=== PATIENT | female | born 1930 | race American Indian/Alaskan Native ===

== ENCOUNTER 2017-03-02 15:03 | Emergency (ER) | payer OTHER ==
[2017-03-02 15:13] VITALS: PULSE 73; RESP 18; TEMP 98.1; O2SAT 96
[2017-03-02 15:30] VITALS: BMI 31.2
[2017-03-02] MEDS ORDERED: Bacitracin 500 Units/gm Oint Foilpak UD TOP ONE (15:31)
--- NOTE | 2017-03-02 15:54 | C.PDOC ---
History Of Present Illness 86 year old female brought in by EMS with complaints of right side pain after fall when stepping off the bus. She complains of pain tor right shoulder and bilateral knee abrasions. She denies head injury, LOC, back pain, incontinence. - HPI Time Seen by Provider: 03/02/17 15:31 Chief Complaint (Nursing): Lower Extremity Problem/Injury History Per: Patient History/Exam Limitations: no limitations Onset/Duration Of Symptoms: Sudden Onset (APPLIANCE REPAIRER) Injury Occurred (Timing): Hours Ago: Past Medical History Reviewed: Historical Data, Nursing Documentation, Vital Signs Vital Signs: Last Vital Signs Temp 98.1 F 03/02/17 15:13 Pulse 73 03/02/17 15:13 Resp 18 03/02/17 15:13 BP 171/76 H 03/02/17 16:50 Pulse Ox 96 03/02/17 17:27 - Medical History PMH: HTN - [facility] Procedures BUNIONECTOMY NEC (06/30/97) REPAIR OF HAMMER TOE (06/30/97) Family History: States: No Known Family Hx - Social History Hx Tobacco Use: No Hx Alcohol Use: No Hx Substance Use: No - Immunization History Hx Tetanus Toxoid Vaccination: No Hx Influenza Vaccination: No Hx Pneumococcal Vaccination: No Review Of Systems Except As Marked, All Systems Reviewed And Found Negative. Musculoskeletal: Positive for: Shoulder Pain (Right shoulder) Skin: Positive for: Other ( Bilateral knee abrasions.) Neurological: Negative for: Weakness, Numbness Physical Exam - Physical Exam Appears: Non-toxic, No Acute Distress, Other (Elderly. Appears stated age.) Skin: Warm, Dry, No Rash, Other (Superficial round abrasions to bilateral knees. No bleeding.) Head: Atraumatic, Normacephalic Eye(s): bilateral: Normal Inspection, PERRL, EOMI Oral Mucosa: Moist Neck: Normal, Normal ROM, Supple Chest: Symmetrical, No Tenderness Cardiovascular: Rhythm Regular, No Murmur Respiratory: Normal Breath Sounds, No Rales, No Rhonchi, No Stridor, No Wheezing Back: No CVA Tenderness, No Vertebral Tenderness, No Paraspinal Tenderness Extremity: Capillary Refill (<2 sec), No Deformity, No Swelling, Other (Right Shoulder: Mild pain with abduction and mild tenderness to the anterior aspect) Pulses: Left Radial: Normal, Right Radial: Normal Neurological/Psych: Oriented x3, Normal Speech, Normal Sensation Gait: Steady ED Course And Treatment O2 Sat by Pulse Oximetry: 96 (RA) Pulse Ox Interpretation: Normal - Other Rad X-Ray - Right Shoulder X-Ray: Viewed By Me, Read By Radiologist Interpretation: PROCEDURE: Radiographs of the Right Shoulder. HISTORY: pain s.p fall. COMPARISON: No prior. FINDINGS: BONES: Normal. No fracture. JOINTS: Preserved glenohumeral relationship, acromioclavicular degenerative change: Mild. SOFT TISSUES: Normal. OTHER FINDINGS: None. IMPRESSION: No acute findings related to/accounting for the clinical presentation. X-Ray - Right Knee X-Ray: Viewed By Me, Read By Radiologist Interpretation: PROCEDURE: Right Knee Radiographs. HISTORY: pain s.p fall. COMPARISON: None. FINDINGS: BONES: No acute fracture. Proliferative hypertrophic changes emanating from the femoral condyle and tibial plateau. JOINTS: Medial compartment degenerative changes and to lesser extent lateral compartment with sparing of the patellofemoral joint. JOINT EFFUSION: None. OTHER FINDINGS: None. 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 No acute findings related to/ accounting for the clinical presentation. Medical Decision Making Medical Decision Making: Impression: right shoulder and knee pain s.p fall. patient found to be hypertensive and admits she has not yet taken her HTN medications today Plan: * Xray right shoulder and knee * Bacitracin and wound care to knee abrasions Progress: Xrays viewed by me showing no acute fracture, dislocation or other abnormality to shoulder and knee Patient was given Norvasc for her HTN. She declined any pain medicine. Patient remained alert and oriented in no acute distress. She is ambulatory without discomfort. Disposition Counseled Patient/Family Regarding: Studies Performed, Diagnosis, Need For Followup - Disposition Referrals: Clinic,Med Surg [Primary Care Provider] - Disposition: HOME/ ROUTINE Disposition Time: 16:33 Condition: STABLE Additional Instructions: Your xray was normal, no fracture. Please apply ice to area 15 minutes three times a day. Take pain medicine as needed for pain every 6 hours, with food to not upset stomach. Follow up with orthopedic if pain persists over one week. 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 - Scribe Statement The provider has reviewed the documentation as recorded by the Scribe Heavenly Martin All medical record entries made by the Joseibwillie were at my direction and personally dictated by me. I have reviewed the chart and agree that the record accurately reflects my personal performance of the history, physical exam, medical decision making, and the department course for this patient. I have also personally directed, reviewed, and agree with the discharge instructions and disposition.
[2017-03-02 16:53] VITALS: BP 171/76
--- NOTE | 2017-03-02 16:56 | RAD ---
PROCEDURE: Right Knee Radiographs. HISTORY: pain s.p fall COMPARISON: None. FINDINGS: BONES: No acute fracture. Proliferative hypertrophic changes emanating from the femoral condyle and tibial plateau JOINTS: Medial compartment degenerative changes and to lesser extent lateral compartment with sparing of the patellofemoral joint. JOINT EFFUSION: None. OTHER FINDINGS: None. 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 No acute findings related to/accounting for the clinical presentation.
--- NOTE | 2017-03-02 16:57 | RAD ---
PROCEDURE: Radiographs of the Right Shoulder HISTORY: pain s.p fall COMPARISON: No prior. FINDINGS: BONES: Normal. No fracture. JOINTS: Preserved glenohumeral relationship, acromioclavicular degenerative change: Mild. SOFT TISSUES: Normal. OTHER FINDINGS: None. IMPRESSION: No acute findings related to/accounting for the clinical presentation.
== END 2017-03-02 17:30 | disposition home or self-care (01) ==
LOC: C.ER 15:03 → SUPCPDRO 15:03 → C.ER 17:30
DX: S40.011A Contusion of right shoulder, initial encounter (principal); S80.211A Abrasion, right knee, initial encounter; S80.212A Abrasion, left knee, initial encounter; W17.89XA Other fall from one level to another, initial encounter; I10 Essential (primary) hypertension

== ENCOUNTER 2018-10-12 12:15 | Emergency (ER) | payer OTHER ==
[2018-10-12 12:22] VITALS: BMI 34.2
[2018-10-12] MEDS ORDERED: Fluorescein 1 mg Ophthalmic Strip OU ONE (12:35)
[2018-10-12] MEDS ORDERED: Tetracaine 0.5% Ophth (OR ONLY) OD ONE (12:35)
[2018-10-12] MEDS ORDERED: Tetracaine 0.5% Ophth (OR ONLY) ONE (12:59)
[2018-10-12] MEDS ORDERED: Fluorescein 1 mg Ophthalmic Strip ONE (12:59)
--- NOTE | 2018-10-12 13:18 | C.PDOC ---
History Of Present Illness 88 year old female, with PMHx of HTN, presents to the ED c/o bilateral eye redness and discomfort that has been present for the past 6 days. She also reports bilateral eye discharge. Patient states that she was sitting on a bench in [place] when she thinks something flew into her eye. Patient also admits that she has also not taken her Carvedilol today. She denies CP, SOB, palpitations, blurry vision, headache, dizziness, fever facial droop, slurred speech, extremity weakness, sensory changes. Time Seen by Provider: 10/12/18 12:28 Chief Complaint (Nursing): Eye Problem History Per: Patient History/Exam Limitations: no limitations Onset/Duration Of Symptoms: Days (6) Current Symptoms Are (Timing): Still Present Quality: Other (discomfort) Associated Symptoms: Discharge From Eye, Other (redness). denies: Decreased Vision Additional History Per: Patient Past Medical History Reviewed: Historical Data, Nursing Documentation, Vital Signs Vital Signs: Last Vital Signs Temp 98.1 F 10/12/18 12:20 Pulse 95 H 10/12/18 12:20 Resp 20 10/12/18 12:20 BP 208/119 H 10/12/18 13:00 Pulse Ox 95 10/12/18 12:20 - Medical History PMH: HTN Surgical History: No Surg Hx - [facility] Procedures BUNIONECTOMY NEC (06/30/97) REPAIR OF HAMMER TOE (06/30/97) Family History: States: No Known Family Hx - Social History Hx Tobacco Use: No Hx Alcohol Use: No Hx Substance Use: No - Immunization History Hx Tetanus Toxoid Vaccination: No Hx Influenza Vaccination: No Hx Pneumococcal Vaccination: No Review Of Systems Constitutional: Negative for: Fever Eyes: Positive for: Redness, Other (bilateral discomfort and discharge). Negative for: Vision Change Cardiovascular: Negative for: Chest Pain Respiratory: Negative for: Shortness of Breath Skin: Negative for: Rash Neurological: Negative for: Headache, Dizziness Physical Exam - Physical Exam Appears: Well, Non-toxic, No Acute Distress Skin: Normal Color, Warm, Dry, No Rash (on face) Head: Atraumatic, Normacephalic Eye(s): bilateral: PERRL, EOMI (no periorbital erythema or swelling ), Other (Purulent yellow discharge B/L, significant scleral injection) Oral Mucosa: Moist Cardiovascular: Rhythm Regular Respiratory: Normal Breath Sounds, No Rales, No Rhonchi, No Wheezing Neurological/Psych: Oriented x3, Normal Speech, Normal Cognition, Normal Cranial Nerves, No Cerebellar Signs, Normal Motor, Normal Sensation ED Course And Treatment O2 Sat by Pulse Oximetry: 95 (on RA) Pulse Ox Interpretation: Normal Progress Note: Tetracaine drops instilled into both eyes, and eyes examined using fluorescein stain under Wood's lamp. No corneal abrasions/ulcers/foreign bodies. Ocular pressures checked by me using tonopen - right 27, left 25. PO Carvedilol 25mg given with improvement of pressure. Reevaluation Time: 16:00 Reassessment Condition: Improved (Patient reassessed, is resting comfortably, in no distress or pain. Patient given Rx for Tobradex and instructed to follow up with ophto monday, as well as with her PMD for further eval of her HTN medication. She understands she should return to ED if symptoms worsen.) - Physician Consult Information Physician Contacted: Chino Miranda Outcome Of Conversation: Discussed patient with ophthamology confectionery maker, recommends Tobradex eye drops and will see patient in the office Monday. Disposition Counseled Patient/Family Regarding: Studies Performed, Diagnosis, Need For Followup, Rx Given - Disposition Referrals: Chino Miranda [Staff Provider] - Disposition: HOME/ ROUTINE Disposition Time: 16:00 Condition: STABLE Additional Instructions: FOLLOW UP WITH EYE DOCTOR ON MONDAY USE MEDICATION DIRECTED RETURN TO ER IF SYMPTOMS WORSEN Prescriptions: Tobramycin/Dexamethasone [Tobradex St Eye Drops] 2 drop OP Q6 #1 bottle Forms: [employer] (Nauruan) Print Language: PORTUGUESE - Clinical Impression Clinical Impression: Bacterial conjunctivitis of both eyes, Hypertension - Scribe Statement The provider has reviewed the documentation as recorded by the Krystin Clark All medical record entries made by the Joseibwillie were at my direction and personally dictated by me. I have reviewed the chart and agree that the record accurately reflects my personal performance of the history, physical exam, medical decision making, and the department course for this patient. I have also personally directed, reviewed, and agree with the discharge instructions and disposition.
[2018-10-12 14:01] VITALS: PULSE 79; RESP 16; TEMP 98
[2018-10-12] MEDS ORDERED: Polymyxin/Trimethoprim Ophth Soln OU STA (14:20)
[2018-10-12 15:39] VITALS: O2SAT 95
[2018-10-12 16:27] VITALS: BP 175/103
== END 2018-10-12 16:49 | disposition home or self-care (01) ==
LOC: C.ER 12:15
DX: H10.89 Other conjunctivitis (principal); I10 Essential (primary) hypertension

== ENCOUNTER 2018-10-25 07:48 | Emergency (ER) | payer OTHER ==
[2018-10-25 07:48] VITALS: BMI 31.2
[2018-10-25 07:57] VITALS: RESP 18
--- NOTE | 2018-10-25 08:16 | C.PDOC ---
History Of Present Illness Patient is a 88 year old female who presents to the ED for follow up care for her right eye. Patient was seen here on the 10/12/18 for eye redness and given eye drops. She was advised to follow up with a doctor in 3 days. Patient states that she went to the eye doctor, but was given an appointment time she did not like and instead came here. She denies any other pain or medical complaints at the present moment. Time Seen by Provider: 10/25/18 07:55 Chief Complaint (Nursing): Eye Problem History Per: Patient History/Exam Limitations: no limitations Onset/Duration Of Symptoms: Days Current Symptoms Are (Timing): Still Present Recent travel outside of the [place]: No Additional History Per: Patient Past Medical History Reviewed: Historical Data, Nursing Documentation, Vital Signs Vital Signs: Last Vital Signs Temp 98.7 F 10/25/18 07:53 Pulse 86 10/25/18 07:53 Resp 18 10/25/18 07:53 BP 170/118 H 10/25/18 07:53 Pulse Ox 96 10/25/18 07:53 Primary Care Provider: FAMILY PROVIDER,NO - Medical History PMH: HTN Surgical History: No Surg Hx - [facility] Procedures BUNIONECTOMY NEC (06/30/97) REPAIR OF HAMMER TOE (06/30/97) Family History: States: Unknown Family Hx - Social History Hx Tobacco Use: No Hx Alcohol Use: No Hx Substance Use: No - Immunization History Hx Tetanus Toxoid Vaccination: No Hx Influenza Vaccination: No Hx Pneumococcal Vaccination: No Review Of Systems Except As Marked, All Systems Reviewed And Found Negative. Constitutional: Negative for: Fever, Chills Eyes: Positive for: Redness (right eye) Cardiovascular: Negative for: Chest Pain Respiratory: Negative for: Shortness of Breath Gastrointestinal: Negative for: Nausea, Vomiting, Diarrhea Physical Exam - Physical Exam Appears: Non-toxic, No Acute Distress Skin: Warm, Dry Head: Atraumatic, Normacephalic Eye(s): right: Other (right eye mild injection) Oral Mucosa: Moist Neck: Normal ROM, Supple Chest: Symmetrical, No Deformity Cardiovascular: Rhythm Regular Respiratory: Normal Breath Sounds, No Rales, No Rhonchi, No Wheezing Gastrointestinal/Abdominal: Soft, No Tenderness Extremity: Normal ROM Neurological/Psych: Oriented x3, Normal Speech ED Course And Treatment O2 Sat by Pulse Oximetry: 96 (on RA) Pulse Ox Interpretation: Normal Medical Decision Making Medical Decision Making: here for f/u. no new isseus conjunctivits resolving. no gross fb visualized explained extensively she will need outpt fu. agrees. va at baseline. Disposition - Disposition Referrals: [facility] [Outside] [facility] [Outside] Master Byrnes MD [Staff Provider] - Disposition: HOME/ ROUTINE Disposition Time: 08:15 Condition: STABLE Additional Instructions: return to any er with worsening. please follow up with your eye doctor. Instructions: Conjunctivitis ([place]) Forms: [employer] (Burkinan) - Clinical Impression Clinical Impression: Eye abnormality - Scribe Statement The provider has reviewed the documentation as recorded by the Scribwillie Clark All medical record entries made by the Scribe were at my direction and personally dictated by me. I have reviewed the chart and agree that the record accurately reflects my personal performance of the history, physical exam, medical decision making, and the department course for this patient. I have also personally directed, reviewed, and agree with the discharge instructions and disposition.
[2018-10-25 08:56] VITALS: BP 143/95; PULSE 75; TEMP 98.9
[2018-10-25 10:34] VITALS: O2SAT 96
== END 2018-10-25 08:59 | disposition home or self-care (01) ==
LOC: C.ER 07:48
DX: Q15.9 Congenital malformation of eye, unspecified (principal); I10 Essential (primary) hypertension